=== PATIENT | female | born 1945 | race Two or more races ===

== ENCOUNTER 2021-09-03 08:16 | Outpatient (CLI) | payer OTHER ==
[~2021-09-03 08:16] MED LIST: ATIVAN1 M1; CLONAZEPAM1 MG PO; COZAAR50 MG PO; TOPROL XL25 M1 PO
== END 2021-09-03 08:33 | disposition home or self-care (01) ==
LOC: MAMO-SONO 08:16
PROVIDERS: ATTEND Internal Medicine Cardiovascular Disease
DX: N64.89 Other specified disorders of breast (principal); Z12.31 Encounter for screening mammogram for malignant neoplasm of breast; Z80.8 Family history of malignant neoplasm of other organs or systems